=== PATIENT | female | born 1965 | race Caucasian/White ===

== ENCOUNTER 2020-09-23 15:08 | Emergency (ER) | payer BC, SELFPAY ==
--- NOTE | 2020-09-23 15:14 | ED.GENADULT ---
HPI - General Adult General Chief complaint: Skin/Abscess/Foreign Body Stated complaint: Boil Time Seen by Provider: 09/23/20 15:14 Source: patient Mode of arrival: ambulatory Limitations: no limitations History of Present Illness HPI narrative: 55-year-old female patient presents to the [facility] with complaints of a wound to the upper vaginal area x1 week. Patient states that she tried to open it herself yesterday and states that all she got out with some blood. Patient states she feels like it is become more red since trying to open it yesterday. Patient is diabetic but noncompliant. Denies fevers, body aches or chills. Related Data Home Medications Medication Instructions Recorded Confirmed albuterol sulfate 2 inh INHALATION DIRECTED 09/23/20 09/23/20 allopurinol 300 mg PO DIRECTED 09/23/20 09/23/20 atorvastatin 10 mg PO DAILY 09/23/20 09/23/20 baclofen 10 mg PO DAILY 09/23/20 09/23/20 citalopram 40 mg PO DAILY 09/23/20 09/23/20 dapagliflozin-metformin [Xigduo XR] 1 tablet PO DIRECTED 09/23/20 09/23/20 Allergies Allergy/AdvReac Type Severity Reaction Status Date / Time morphine Allergy Unknown HALLUCINATI Verified 03/27/15 07:08 ONS Sulfa (Sulfonamide Allergy Unknown Verified 08/12/14 10:44 Antibiotics) Review of Systems Review of Systems: Narrative: CONSTITUTIONAL: Denies fever, chills, or sweats. EYES: Denies visual changes, redness, or discharge. ENT: Denies rhinorrhea, congestion, sore throat, or otalgia. CARDIOVASCULAR: Denies chest pain, palpitations, or edema. RESPIRATORY: Denies cough or dyspnea. GASTROINTESTINAL: Denies abdominal pain, nausea, vomiting, or diarrhea. GENITOURINARY: Denies dysuria or hematuria. SKIN: Denies rash or itching. Positive wound to upper vaginal area x1 week MUSCULOSKELETAL: Denies back pain, joint pain, or myalgia. NEUROLOGIC: Denies headache, numbness, or weakness. PSYCHIATRIC: Denies anxiety or depression. [facility] Past Medical History Medical History (Updated 09/23/20 @ 16:03 by KAYLA Hamilton) Anxiety Bronchitis Depression Diverticulosis Heart murmur Hypertension Kidney stones 1992 cystoscopy with stent, right ESWL 2008 Type 2 diabetes mellitus Urinary tract infection Surgical History Surgical History (Updated 09/23/20 @ 15:16 by KAYLA Hamilton) H/O tubal ligation 2002 History of X3 History of carpal tunnel release Left History of hysterectomy Hx of cholecystectomy Family History Family History Mother Family history of thyroid disease Family history of diabetes mellitus in first degree relative Family history of type 2 diabetes mellitus Father Family history of heart disease in male family member before age 55 Cerebrovascular accident Grandparent Family history of type 2 diabetes mellitus Diabetes mellitus Family history of malignant neoplasm Sibling Family history of type 2 diabetes mellitus Other Family history of allergic disorder Family history of cardiovascular disease Hypertension Social History Social History Smoking status: Heavy tobacco smoker Second hand tobacco smoke exposure: Yes Alcohol intake: current Comments At the time of my signature I agree with nursing past medical history, surgical, social, and family history. There is no relevant family history pertinent to the presenting complaint. Exam Narrative: Exam Narrative: GENERAL: Well-appearing, well-nourished, and in no acute distress. HEAD: Normocephalic, atraumatic. EYES: PERRLA and EOMI. ENT: Nares clear, no rhinorrhea or epistaxis. Mucous membranes moist. NECK: Supple. No lymphadenopathy CHEST: Clear to auscultation. No respiratory distress. HEART: Regular rate and rhythm. No murmur heard. Normal peripheral pulses. ABDOMEN: Soft, nontender, nondistended, normal active bowel sounds. EXTREMITIES: Nor
[2020-09-23 15:25] VITALS: BP 148/89; PULSE 81; RESP 18; TEMP 36.2; O2SAT 100
== END 2020-09-23 16:08 | disposition home or self-care (01) ==
PROVIDERS: Emergency Provider Nurse Practitioner Family; PCP Nurse Practitioner Family
DX: N76.4 Abscess of vulva (principal); F17.200 Nicotine dependence, unspecified, uncomplicated; F41.9 Anxiety disorder, unspecified; F32.9 Major depressive disorder, single episode, unspecified; R01.1 Cardiac murmur, unspecified; I10 Essential (primary) hypertension; E11.9 Type 2 diabetes mellitus without complications
CPT/HCPCS: 56405; 87070; 87075; 87147; 87186; 87205; 99213; G0463

== ENCOUNTER 2022-01-06 03:09 | Inpatient (IN) | payer BC, SELFPAY ==
[2022-01-06] VITALS (7 sets, daily range): BP systolic 113–153; BP diastolic 59–82; PULSE 67–92; RESP 16–18; TEMP 36.1–36.8; O2SAT 94–100; BMI 38.2
--- NOTE | ~2022-01-06 | CT_ITS ---
EXAMINATION: CT abdomen pelvis w con INDICATION: Flank pain TECHNIQUE: Computed tomographic images of the abdomen and pelvis were obtained after the administrati on of 100 cc of Omnipaque 350 intravenous contrast. The dose-length product (DLP) was 1240.91 mGy-cm. Automated exposure control and iterative reconstruction technique were employed. COMPARISON: 04/13/2009 FINDINGS: Minimal dependent atelectasis is present in the lung bases. The heart size is normal. The g allbladder is surgically absent. There is mild enlargement of the common bile duct and central intrah epatic ducts which is likely due to post cholecystectomy state. The liver is diffusely low in attenua tion when compared with the spleen, consistent with hepatic steatosis. The spleen, pancreas, and adre nal glands are normal. There there are two nonobstructing 6 mm stones of the right kidney. There are areas of cortical scarring in the right kidney. No pathologically enlarged abdominal or pelvic lymph nodes are identified. There is severe lumbar spondylosis. IMPRESSION: 1. No CT correlate for the patient's symptoms. 2. Nonobstructing right nephrolithiasis. Reviewed, dictated and finalized at location A.
[2022-01-06 03:37] LABS: Basophils Absolute Auto 0.1 K/mm3 (0.0-0.1); Basophils Percent Auto 0.6 % (0.2-1.2); Eosinophils Absolute Auto 0.1 K/mm3 (0-0.3); Eosinophils Percent Auto 1.3 % (0-4.4); Hematocrit 51.7 % (37.0-47.0); Hemoglobin 17.8 g/dL (12.0-15.0); Immature Granulocyte Absolute 0.07 K/mm3 (0.00-0.031); Immature Granulocyte Percent A 0.7 % (0-0.5); Lymphocytes Absolute Auto 3.34 K/mm3 (0.9-3.2); Lymphocytes Percent Auto 33.9 % (18.3-44.2); Mean Corpuscular HGB Conc 34.4 g/dl (32-36); Mean Corpuscular Hemoglobin 32.6 pg (26-34); Mean Corpuscular Volume 94.7 fl (80-100); Mean Platelet Volume 9.1 fl (7.4-10.4); Monocytes Absolute Auto 0.7 K/mm3 (0.1-0.6); Monocytes Percent Auto 6.8 % (2.6-8.5); Neutrophils Absolute Auto 5.6 K/mm3 (1.3-6.7); Neutrophils Percent Auto 56.7 % (45.5-73.1); Platelet Count Result 273 k/mm3 (150-375); Red Blood Count 5.46 M/mm3 (4.2-5.4); Red Cell Distribution Width 13.6 % (11.5-14.5); White Blood Count 9.9 K/mm3 (4.5-10.0)
[2022-01-06 03:38] LABS: Appearance Urine Clear (Clear); Bilirubin Urine Negative (Negative); Blood Urine Trace-lysed (Negative); Color Urine Yellow (Yellow); Glucose Urine UA 3+ mg/dL (Negative); Ketones Urine Negative (Negative); Leukocyte Esterase Ur Trace LEU/UL (Negative); Nitrate Urine Negative (Negative); Protein Urine Negative (Negative); Specific Grav Ur 1.015 (1.001-1.035); Urobilinogen Urine 0.2 mg/dL (<2.0)
[2022-01-06 03:46] LABS: Bacteria Urine Trace /hpf; Mucus Urine Rare /lpf; Squamous Epithelial Cell Urine Occasional /hpf (Few); WBC Urine 51-75 /hpf
[2022-01-06 03:49] LABS: Add Urine Microscopic? YES
[2022-01-06 03:52] LABS: Alanine Aminotransferase 26 U/L (6-35); Albumin Level 4.9 g/dL (3.5-5.1); Alkaline Phosphatase 142 U/L (38-126); Anion Gap 12 mmol/L (8-16); Aspartate Amino Transferase 24 U/L (14-36); Bilirubin,Total 0.5 mg/dL (0.2-1.3); Blood Urea Nitrogen 16 mg/dL (7-17); Calcium 10.2 mg/dL (8.4-10.2); Carbon Dioxide 30 mmol/L (22-30); Chloride 92 mmol/L (98-107); Estimated Glomerular Filt Rate 58; Glucose 235 mg/dL (65-110); Lipase 817 U/L (23-300); Sodium 134 mmol/L (137-145)
--- NOTE | 2022-01-06 04:26 | ED.ABDPAIN ---
HPI - Abdominal Pain General Chief Complaint: Abdominal Pain Stated Complaint: abd pain Time Seen by Provider: 01/06/22 03:13 History of Present Illness HPI narrative: 56-year-old female presents emergency room second abdominal pain. She points to the midportion of her abdomen where the pain is located. Is been going on for approximately 4 to 5 days got progressively worse. She had a decrease in appetite over the last couple days. She denies any chills or fevers. No nausea vomiting. She does have prior history surgically of her gallbladder taken out as well as a hysterectomy. She denies any prior history of pancreatitis. Had any alcoholic drink in about 6 years. Related Data Home Medications Medication Instructions Recorded Confirmed albuterol sulfate 90 mcg/actuation 2 inh inhalation DIRECTED 09/23/20 09/23/20 aerosol inhaler allopurinol 300 mg tablet 300 mg PO DIRECTED 09/23/20 09/23/20 atorvastatin 10 mg tablet 10 mg PO DAILY 09/23/20 09/23/20 baclofen 10 mg tablet 10 mg PO DAILY 09/23/20 09/23/20 citalopram 40 mg tablet 40 mg PO DAILY 09/23/20 09/23/20 dapagliflozin 5 mg-metformin ER 1 tablet PO DIRECTED 09/23/20 09/23/20 1,000 mg tablet,extended release 24hr (Xigduo XR) Allergies Allergy/AdvReac Type Severity Reaction Status Date / Time morphine Allergy Unknown HALLUCINATI Verified 03/27/15 07:08 ONS Sulfa (Sulfonamide Allergy Unknown Verified 08/12/14 10:44 Antibiotics) Review of Systems Review of Systems: CONSTITUTIONAL: Denies fever, chills, or sweats. EYES: Denies visual changes, redness, or discharge. ENT: Denies rhinorrhea, congestion, sore throat, or otalgia. CARDIOVASCULAR: Denies chest pain, palpitations, or edema. RESPIRATORY: Denies cough or dyspnea. GASTROINTESTINAL: Abdominal pain with some nausea. GENITOURINARY: Denies dysuria or hematuria. SKIN: Denies rash or itching. MUSCULOSKELETAL: Denies back pain, joint pain, or myalgia. NEUROLOGIC: Denies headache, numbness, or weakness. PSYCHIATRIC: Denies anxiety or depression. [facility] Past Medical History Medical History Anxiety Bronchitis Depression Diverticulosis Heart murmur Hypertension Kidney stones 1992 cystoscopy with stent, right ESWL 2007 Type 2 diabetes mellitus Urinary tract infection Surgical History Surgical History H/O tubal ligation 2002 History of X3 History of carpal tunnel release Left History of hysterectomy Hx of cholecystectomy Family History Family History Mother Family history of thyroid disease Family history of diabetes mellitus in first degree relative Family history of type 2 diabetes mellitus Father Family history of heart disease in male family member before age 55 Cerebrovascular accident Grandparent Family history of type 2 diabetes mellitus Diabetes mellitus Family history of malignant neoplasm Sibling Family history of type 2 diabetes mellitus Other Family history of allergic disorder Family history of cardiovascular disease Hypertension Social History Social History Smoking status: Heavy tobacco smoker Second hand tobacco smoke exposure: Yes Alcohol intake: current Exam Narrative: APPEARANCE: Well appearing, no pain or distress, well-nourished. Patient is obese Head Normocephalic and atraumatic. EYES: PERRLA/EOMI, conjunctivae clear. NOSE: Normal with no drainage EARS:TMS clear with Madird, with good light reflex. THROAT: Pharynx clear, no exudate. NECK: Supple. No adenopathy, no masses. RESPIRATORY: Airway patent, respirations nonlabored. Clear to auscultation bilaterally, no rales, rhonchi, wheezing. CARDIOVASCULAR: Regular rate and rhythm without murmurs, rubs, or gallops. ABDOMINAL: Soft with tenderness to palp
[2022-01-06] MEDS: fentaNYL CITRATE INJ (*CRX) 100 MCG/2 ML VIAL 50 MCG IV PUSH (05:16)
[2022-01-06] MEDS: ONDANSETRON INJ 4 MG/2 ML VIAL IV PUSH (05:16)
--- NOTE | 2022-01-06 06:45 | ADMGEN ---
This patient, Veronica Mcdonough, was admitted to [facility] Surg Room 320-01. Patient/family oriented to hospital policies and general routines including ID bracelet, bed and alarms, visiting hours, pain management, procedures, bathroom and other care routines, personal items, smoking policy, room service/diet, and visiting hours. Information on how to activate the Rapid Response Team has been discussed. Patient/Family are encouraged to report perceived risks to care and to ask questions if they do not understand what they are told or what they should do.
[2022-01-06] MEDS: SODIUM CHLORIDE 0.9% IV 1,000 ML 200 ML IV CONT (06:50)
[2022-01-06 07:43] LABS: Glucose Point of Care 256 mg/dl (65-105)
--- NOTE | 2022-01-06 08:59 | PC.NURSE ---
informed Colleen pt provider Bs [id number], currently NPO for pancreatis.
--- NOTE | 2022-01-06 09:39 | PM.IMHP ---
H&P: HPI History of Present Illness Date/Time: 01/06/22 09:39 Chief Complaint: abdominal pain Narrative: Date of service: 01/06/2022 Veronica Mcdonough is a 56-year-old female with a history of type 2 diabetes mellitus, hypertension, kidney stones, anxiety, depression, and cholecystectomy in 2018 who presented to the emergency department on 01/06/2022 with complaints of abdominal pain ongoing for 5 days. She states her pain started in her belly button and spread towards her right side. She described it as a constant aching sensation that worsened any time she ate something. Pain slowly worsened over the past couple of days. She was still able to tolerate oral intake until last night when she ate a pork steak and developed severe pain that she rated as 7.5/10. She had an episode of emesis at home and then ultimately decided to seek emergency care. She reports 3-4 additional episodes of emesis in the ED, stating she vomited up her dinner. She denies alcohol use. Denies any previous history of pancreatitis. On presentation to the ED , her vital signs were stable, she was afebrile, H&H slightly elevated likely due to hemoconcentration, glucose 235, lipase 817, and initial CT report showed hepatic steatosis and nonobstructing right kidney stones. at the time of my initial evaluation, she is feeling improved after receiving pain medications. She currently rates her pain as 3/10 and denies nausea, vomiting, fever, or chills. She is being admitted to the hospitalist service. Supervising physician for this history and physical is Dr. Emmy Arevalo. Review of Systems Review of Systems: All systems reviewed with pertinent positives and negatives as per HPI. Patient denies shortness of breath, cough, chest pain, palpitations, dizziness, lightheadedness, weakness. States she has been drinking plenty of fluids at home. She had diarrhea 2-3 days ago but states this has resolved. She did have a loose stool yesterday. Denies melena, hematochezia, hematemesis. Denies dysuria, hematuria, urgency, frequency. No lower extremity swelling. No headaches. Reports recent cold symptoms about 1.5 weeks ago. No recent sick contacts. [facility] Past Medical History Medical History (Updated 01/06/22 @ 13:33 by Colleen Johnson PA-C) Anxiety Bronchitis Depression Diverticulosis Heart murmur Hypertension Kidney stones 1992 cystoscopy with stent, right ESWL 2008 Tobacco abuse Type 2 diabetes mellitus Surgical History Surgical History H/O tubal ligation 2002 History of X3 History of carpal tunnel release Left History of hysterectomy Hx of cholecystectomy Family History Family History Mother Family history of thyroid disease Family history of diabetes mellitus in first degree relative Family history of type 2 diabetes mellitus Father Family history of heart disease in male family member before age 55 Cerebrovascular accident Grandparent Family history of type 2 diabetes mellitus Diabetes mellitus Family history of malignant neoplasm Sibling Family history of type 2 diabetes mellitus Other Family history of allergic disorder Family history of cardiovascular disease Hypertension Social History Social History (Updated 01/06/22 @ 09:58 by Colleen Johnson PA-C) Social History: Lives at home with and 3 children PCP: Fadia Byrne NP POA: Chris () Full code Smoking packs per day: 1 Smoking cigarettes per day: 20.0 Years smoked: 40 Smoking pack-years: 40.00 Smoking status: Current every day smoker Tobacco type: cigarettes Alcohol intake: never Substance use type: does not use Spiritual care concerns: No Meds Home Medications and Allergies Home Medications Medication Instructions Recorded Confirmed Type albuterol sulfate 90 mcg/actuation 2
[2022-01-06] MEDS: ENOXAPARIN 40 MG/0.4 ML SYRINGE SUB-Q (10:41)
[2022-01-06 10:50] LABS: Hemoglobin A1C 8.7 % (<5.7)
[2022-01-06 11:23] LABS: Glucose Point of Care 257 mg/dl (65-105)
[2022-01-06] MEDS: SODIUM CHLORIDE 0.9% IV 1,000 ML 100 ML IV CONT ×2 (13:39→23:53)
[2022-01-06] MEDS: HYDROmorphone HCL INJ (*CRX) 1 MG/ML SYR 0.5 MG IV PUSH (13:47)
[2022-01-06] MEDS: NICOTINE (*PBKC) 21 MG PATCH 1 PATCH TRANSDERM (16:08)
[2022-01-06 16:28] LABS: Glucose Point of Care 180 mg/dl (65-105)
[2022-01-06 20:07] LABS: Glucose Point of Care 177 mg/dl (65-105)
[2022-01-07 06:00] VITALS: BP 124/69; PULSE 61; RESP 18; TEMP 36.6; O2SAT 96
[2022-01-07 06:28] LABS: Hematocrit 45.5 % (37.0-47.0); Hemoglobin 15.3 g/dL (12.0-15.0); Mean Corpuscular HGB Conc 33.6 g/dl (32-36); Mean Corpuscular Hemoglobin 32.1 pg (26-34); Mean Corpuscular Volume 95.4 fl (80-100); Mean Platelet Volume 8.9 fl (7.4-10.4); Platelet Count Result 220 k/mm3 (150-375); Red Blood Count 4.77 M/mm3 (4.2-5.4); Red Cell Distribution Width 13.2 % (11.5-14.5); White Blood Count 5.2 K/mm3 (4.5-10.0)
[2022-01-07 06:39] LABS: Alanine Aminotransferase 20 U/L (6-35); Albumin Level 3.9 g/dL (3.5-5.1); Alkaline Phosphatase 108 U/L (38-126); Anion Gap 6 mmol/L (8-16); Aspartate Amino Transferase 22 U/L (14-36); Bilirubin,Total 0.6 mg/dL (0.2-1.3); Blood Urea Nitrogen 11 mg/dL (7-17); Calcium 8.6 mg/dL (8.4-10.2); Carbon Dioxide 30 mmol/L (22-30); Chloride 101 mmol/L (98-107); Estimated CRCL calculation 114 ml/min; Estimated Glomerular Filt Rate > 60; Glucose 192 mg/dL (65-110); Lipase 455 U/L (23-300); Potassium 4.2 mmol/L (3.4-5.0); Sodium 137 mmol/L (137-145)
[2022-01-07 07:50] LABS: Glucose Point of Care 195 mg/dl (65-105)
[2022-01-07] MEDS: CITALOPRAM HYDROBROMIDE 20 MG TABLET 40 MG PO (08:18)
[2022-01-07] MEDS: ATORVASTATIN 10 MG TABLET PO (08:18)
[2022-01-07] MEDS: allopurinoL 300 MG TABLET PO (08:18)
[2022-01-07] MEDS: ENOXAPARIN 40 MG/0.4 ML SYRINGE SUB-Q (08:19)
[2022-01-07] MEDS: NICOTINE (*PBKC) 21 MG PATCH 1 PATCH TRANSDERM (08:19)
[2022-01-07 11:34] LABS: Glucose Point of Care 301 mg/dl (65-105)
[2022-01-07] MEDS: INSULIN ASPART (*BKC) 100 UNITS/ML SUB-Q (11:47)
[2022-01-07] MEDS: SODIUM CHLORIDE 0.9% IV 1,000 ML 100 ML IV CONT (11:49)
[2022-01-07 14:00] VITALS: BP 127/65; PULSE 58; RESP 16; TEMP 35.8; O2SAT 96
[2022-01-07 15:37] LABS: Glucose Point of Care 261 mg/dl (65-105)
--- NOTE | 2022-01-07 15:55 | PM.DS ---
DS: Admitting Diagnosis Discharge Date 01/07/2022 Admitting Diagnosis pancreatitis DS: Discharge Diagnosis Discharge Diagnosis (1) Acute pancreatitis: Code(s): K85.90 - Acute pancreatitis without necrosis or infection, unspecified Status: Acute Assessment and Plan: Patient presented with nausea, vomiting, abdominal pain. Lipase 800 on presentation, nearly 3x upper limit of normal CT of abdomen/pelvis reviewed, pancreas normal on imaging however clinical findings consistent with pancreatitis Symptomatic improvement following IV fluid rehydration and bowel rest Diet was slowly advanced and patient able to tolerate diet Patient denies alcohol use for >6 years, s/p cholecytstectomy, does not appear to be on any medications known to cause pancreatitis. Most likely idiopathic. Lipase improved to 450. Symptoms resolved Continue low-fat diet (2) Type 2 diabetes mellitus: Code(s): E11.9 - Type 2 diabetes mellitus without complications Status: Acute Assessment and Plan: A1c is 8.7. Blood sugar slightly elevated during admission managed during admission with Accu-Cheks, sliding scale insulin, hypoglycemic protocol resume home dapagliflozin-metformin instructed to monitor blood sugars at home qid with meals and at bedtime and follow-up with PCP for glucose monitoring (3) Hypertension: Code(s): I10 - Essential (primary) hypertension Status: Acute Assessment and Plan: blood pressure reviewed and was well controlled patient is not on any antihypertensives (4) Polycythemia: Code(s): D75.1 - Secondary polycythemia Status: Acute Assessment and Plan: Hemoglobin 17.8 and hematocrit 51.7 on presentation Initial labs felt to be secondary to hemoconcentration Improved with IV fluids. Hematocrit normalized and hemoglobin only mildly elevated at 15.3 Encouraged adequate p.o. fluid hydration Less likely due to smoking given improvement with fluids (5) Tobacco abuse: Code(s): Z72.0 - Tobacco use Status: Acute Assessment and Plan: Patient smokes 1 pack per day Nicotine patch provided during admission Patient was educated regarding smoking cessation for 3 minutes. DS: Summary Hospital Course Hospital Course: date of admission: 01/06/2022 date of discharge: 01/07/2022 Veronica Mcdonough is a 56-year-old female with a history of type 2 diabetes mellitus, hypertension, kidney stones, anxiety, depression, ? and cholecystectomy in 2018 who presented to the emergency department on 01/06/2022 with complaints of abdominal pain ongoing for 5 days. On presentation to the ED , her vital signs were stable, she was afebrile, H&H slightly elevated likely due to hemoconcentration, glucose 235, lipase 817,?and initial CT report showed hepatic steatosis and nonobstructing right kidney stones. she was admitted to the hospitalist service for further evaluation and management. Please see above for further details. She had symptomatic improvement following IV rehydration and bowel rest. Lipase improved. She was able to advance to a low-fat diet and tolerated this without difficulty. Given overall improvement of her symptoms, she requested discharge home and was determined to no longer require inpatient care. I discussed with the patient worrisome signs and symptoms for which to return and she was educated on her medications. She will maintain a low-fat diet and will follow-up with her primary care provider in 1-2 weeks. She was discharged in hemodynamically stable condition on 01/07/2022. Time spent discussing smoking cessation with patient: 3 to 10 minutes Status at Discharge Functional status at discharge: independent ambulation Overall status at discharge: patient is back to baseline Time Spent with Patient Time attestation: Total time spent providing and/or coordinating discharge services: 33 minutes Time spent: Greater than 30
== END 2022-01-07 16:00 | disposition home or self-care (01) | DRG 440 ==
LOC: ANHED 05:47 → ANH3MEDSUR 06:19
PROVIDERS: Admitting Provider Internal Medicine; Emergency Provider Emergency Medicine; PCP Nurse Practitioner Family; Visit Provider Physician Assistant
DX: K85.90 Acute pancreatitis without necrosis or infection, unspecified (principal); D75.1 Secondary polycythemia; I10 Essential (primary) hypertension; E11.9 Type 2 diabetes mellitus without complications; E66.9 Obesity, unspecified; R01.1 Cardiac murmur, unspecified; F41.9 Anxiety disorder, unspecified; F32.A Depression, unspecified; F17.210 Nicotine dependence, cigarettes, uncomplicated; Z87.442 Personal history of urinary calculi; Z90.49 Acquired absence of other specified parts of digestive tract
CPT/HCPCS: 36415; 74177; 80053; 81001; 82948; 83036; 83690; 85025; 85027; 87077; 87086; 87088; 87186; 96374; 96375; 99285; A9270; J0131; J1170; J1650; J1815; J2405; J3010; J7030; Q9967

== ENCOUNTER 2022-09-18 19:06 | Emergency (ER) | payer BC, SELFPAY ==
[2022-09-18 19:15] VITALS: BP 136/71; PULSE 90; RESP 16; TEMP 36.4; O2SAT 97
[2022-09-18 19:34] VITALS: BP 136/71; PULSE 90; RESP 16; TEMP 36.4; O2SAT 97
--- NOTE | 2022-09-18 19:41 | ED.URI ---
HPI - URI/Sore Throat General Chief Complaint: Upper Respiratory Infection Stated Complaint: Sinus/Head/Neck Pain Time Seen by Provider: 09/18/22 19:32 Source: patient and RN notes reviewed Mode of arrival: ambulatory Limitations: no limitations History of Present Illness HPI Narrative: Patient presents today complaining of swelling and tenderness to the right lower jaw, in front of the right ear. Symptoms began today. Patient has been started recently on some allergy medication and Flonase that she takes daily for allergy symptoms. She currently rates her pain 6/10. Denies any bad or broken teeth. She does report some right ear pain as well. Related Data Home Medications Medication Instructions Recorded Confirmed albuterol sulfate 90 mcg/actuation 2 inh inhalation PRN PRN SOB 09/23/20 01/06/22 aerosol inhaler allopurinol 300 mg tablet 300 mg PO DAILY 09/23/20 01/06/22 atorvastatin 10 mg tablet 10 mg PO DAILY 09/23/20 01/06/22 baclofen 10 mg tablet 10 mg PO DAILY PRN muscle spasm 09/23/20 01/06/22 citalopram 40 mg tablet 40 mg PO DAILY 09/23/20 01/06/22 dapagliflozin 5 mg-metformin ER 1 tablet PO BID 09/23/20 01/06/22 1,000 mg tablet,extended release 24hr (Xigduo XR) Allergies Allergy/AdvReac Type Severity Reaction Status Date / Time morphine Allergy Unknown HALLUCINATI Verified 09/18/22 19:08 ONS Sulfa (Sulfonamide Allergy Unknown Hives Verified 09/18/22 19:08 Antibiotics) Review of Systems Review of Systems: CONSTITUTIONAL: Denies body aches, fever, chills, or sweats. EYES: Denies visual changes, redness, or discharge. ENT: Denies rhinorrhea, congestion, sore throat. + right ear pain, bump to right jaw CARDIOVASCULAR: Denies chest pain, palpitations, or edema. RESPIRATORY: Denies cough or dyspnea. GASTROINTESTINAL: Denies abdominal pain, nausea, vomiting, or diarrhea. GENITOURINARY: Denies dysuria or hematuria. SKIN: Denies rash, itching, or wounds. MUSCULOSKELETAL: Denies back pain, joint pain, or myalgia. NEUROLOGIC: Denies headache, numbness, tingling, or weakness. PSYCH: Denies depression or anxiety. [facility] Past Medical History Medical History Anxiety Bronchitis Depression Diverticulosis Heart murmur Hypertension Kidney stones 1992 cystoscopy with stent, right ESWL 2008 Tobacco abuse Type 2 diabetes mellitus Surgical History Surgical History H/O tubal ligation 2002 History of X3 History of carpal tunnel release Left History of hysterectomy Hx of cholecystectomy Family History Family History Mother Family history of thyroid disease Family history of diabetes mellitus in first degree relative Family history of type 2 diabetes mellitus Father Family history of heart disease in male family member before age 55 Cerebrovascular accident Grandparent Family history of type 2 diabetes mellitus Diabetes mellitus Family history of malignant neoplasm Sibling Family history of type 2 diabetes mellitus Other Family history of allergic disorder Family history of cardiovascular disease Hypertension Social History Social History Social History: Lives at home with and 3 children PCP: Fadia Byrne NP POA: Chris () Full code Smoking packs per day: 1 Smoking cigarettes per day: 20.0 Years smoked: 40 Smoking pack-years: 40.00 Smoking status: Current every day smoker Tobacco type: cigarettes Alcohol intake: never Substance use type: does not use Spiritual care concerns: No Comments At time of signature, I have reviewed and agree with nursing past medical, surgical, social and family history unless otherwise noted. Please see nursing chart for further information. Th
== END 2022-09-18 19:49 | disposition home or self-care (01) ==
PROVIDERS: Emergency Provider Nurse Practitioner; PCP Nurse Practitioner Family
DX: I88.9 Nonspecific lymphadenitis, unspecified (principal); H65.01 Acute serous otitis media, right ear; F17.210 Nicotine dependence, cigarettes, uncomplicated; R01.1 Cardiac murmur, unspecified; I10 Essential (primary) hypertension; E11.9 Type 2 diabetes mellitus without complications
CPT/HCPCS: 99211; G0463

== ENCOUNTER 2023-01-28 10:03 | Outpatient (CLI) | payer BC, SELFPAY ==
--- NOTE | ~2023-01-28 | CT_ITS ---
EXAMINATION: CT lung screening DATE: 01/28/2023 10:43 INDICATION: Personal history of nicotine dependence, current smoker with 38 pack year history TECHNIQUE: Computed tomography (CT) of the chest was performed without intravenous contrast. The dose -length product (DLP) was 279.73 mGy-cm. Automated exposure control and iterative reconstruction tech [id number] were employed. COMPARISON: None FINDINGS: There is mild emphysema. The lungs are free of acute opacities. No pleural effusion or pneu mothorax. No suspicious pulmonary nodule is identified. No pathologically enlarged thoracic lymph nod es are identified. The heart size is normal. The gallbladder is surgically absent. There is mild thor acic spondylosis. IMPRESSION: 1. Lung-RADS category 1: Negative. Continue annual screening with noncontrast low-dose chest CT in 12 months. Reviewed, dictated and finalized at location L. IMPRESSION: 1. Lung-RADS category 1: Negative. Continue annual screening with noncontrast l ow-dose chest CT in 12 months.
== END 2023-01-28 10:04 | disposition home or self-care (01) ==
PROVIDERS: PCP Nurse Practitioner Family; Visit Provider Nurse Practitioner Family
DX: Z12.2 Encounter for screening for malignant neoplasm of respiratory organs (principal); F17.210 Nicotine dependence, cigarettes, uncomplicated
CPT/HCPCS: 71271

== ENCOUNTER 2023-06-10 11:47 | Emergency (ER) | payer BC, SELFPAY ==
--- NOTE | ~2023-06-10 | XR_ITS ---
XR chest 2V DATE: 06/10/2023 12:49 INDICATION: Cough TECHNIQUE: PA and lateral views COMPARISON: 01/28/2023 CT lung screening FINDINGS: Normal heart size. No hilar or mediastinal enlargement. No pulmonary infiltrate or consolid ation, pleural effusion or pulmonary vascular congestion or pneumothorax is detected. Included skeletal structures are unremarkable. IMPRESSION: No active cardiopulmonary disease Reviewed, dictated and finalized at location [facility]
[2023-06-10 12:02] VITALS: BP 119/65; PULSE 70; RESP 20; TEMP 35.7; O2SAT 100
[2023-06-10 12:10] VITALS: BP 119/65; PULSE 70; RESP 20; TEMP 35.7; O2SAT 100
--- NOTE | 2023-06-10 12:10 | ED.URI ---
HPI - URI/Sore Throat General Chief Complaint: Upper Respiratory Infection Stated Complaint: cough,sore throat,earache Time Seen by Provider: 06/10/23 12:11 Source: patient, RN notes reviewed and old records reviewed Mode of arrival: ambulatory Limitations: no limitations History of Present Illness HPI Narrative: 58-year-old female presents to the [facility] with complaints of cough, sore throat, earache. Has tried Delsym, Mucinex, Robitussin as well as DayQuil and NyQuil Patient is a smoker Patient has a history of diabetes, has not been wearing her diabetic monitor. States she needs to get filled at the pharmacy Onset (ago): week(s) (1) Treatments prior to arrival: cold medicine Related Data Home Medications Medication Instructions Recorded Confirmed albuterol sulfate 90 mcg/actuation 2 inh inhalation PRN PRN SOB 09/23/20 06/10/23 aerosol inhaler allopurinol 300 mg tablet 300 mg PO DAILY 09/23/20 06/10/23 atorvastatin 10 mg tablet 10 mg PO DAILY 09/23/20 06/10/23 baclofen 10 mg tablet 10 mg PO DAILY PRN muscle spasm 09/23/20 06/10/23 citalopram 40 mg tablet 40 mg PO DAILY 09/23/20 06/10/23 glipizide 10 mg tablet, extended 10 mg PO DAILY 06/10/23 06/10/23 release 24 hr lisinopril 5 mg tablet 5 mg PO DAILY 06/10/23 06/10/23 tramadol 50 mg tablet 50 mg PO Q6-8H PRN Pain 06/10/23 06/10/23 Allergies Allergy/AdvReac Type Severity Reaction Status Date / Time morphine Allergy Unknown HALLUCINATI Verified 09/18/22 19:08 ONS Sulfa (Sulfonamide Allergy Unknown Hives Verified 09/18/22 19:08 Antibiotics) Review of Systems Review of Systems: All systems reviewed & are unremarkable except as noted in HPI and below Constitutional: Constitutional: Reports no additional constitutional complaints Eyes: Eyes: Reports no additional eye complaints ENT: Reports as per HPI and Reports sore throat Cardiovascular: Cardiovascular: Reports no additional cardiovascular complaints, Denies chest pain and Denies dyspnea Respiratory: Respiratory: Reports as per HPI, Denies chest congestion, Reports cough and Denies dyspnea Gastrointestinal: Gastrointestinal: Reports no additional gastrointestinal complaints, Denies abdominal pain, Denies nausea and Denies vomiting Musculoskeletal: Musculoskeletal: Reports no additional musculoskeletal complaints Integumentary/Breasts: Skin/Breast: Reports system reviewed and no additional complaints, except as docu Neurologic: Reports system reviewed and no additional complaints, except as documented Psychiatric: Psychiatric: Reports no additional psychiatric complaints Allergic/Immunologic: Allergic/Immunologic: Reports no additional allergic/immunologic complaints PMFSH Past Medical History Medical History Anxiety Bronchitis Depression Diverticulosis Elevated liver enzymes Heart murmur High cholesterol Hypertension Kidney stones 1992 cystoscopy with stent, right ESWL 2008 Smoker TMJ arthralgia Tobacco abuse Type 2 diabetes mellitus Type 2 diabetes mellitus with complication, without long-term current use of insulin Type 2 diabetes mellitus without complications Surgical History Surgical History H/O tubal ligation 2002 History of X3 History of carpal tunnel release Left History of hysterectomy Hx of cholecystectomy Family History Family History Mother Family history of thyroid disease Family history of diabetes mellitus in first degree relative Family history of type 2 diabetes mellitus Father Family history of heart disease in male family member before age 55 Cerebrovascular accident Grandparent Family history of type 2 diabetes mellitus Diabetes mellitus Family history of malignant neoplasm Sibling Family history of type 2 diabetes mellitus Other Family history of allergic dis
== END 2023-06-10 13:10 | disposition home or self-care (01) ==
PROVIDERS: Emergency Provider Nurse Practitioner; PCP Nurse Practitioner Family
DX: J40 Bronchitis, not specified as acute or chronic (principal); F17.210 Nicotine dependence, cigarettes, uncomplicated; R01.1 Cardiac murmur, unspecified; E78.00 Pure hypercholesterolemia, unspecified; I10 Essential (primary) hypertension; E11.9 Type 2 diabetes mellitus without complications; Z79.84 Long term (current) use of oral hypoglycemic drugs
CPT/HCPCS: 71046; 99213; G0463

== ENCOUNTER 2023-10-24 18:02 | Emergency (ER) | payer BC, SELFPAY ==
--- NOTE | 2023-10-24 18:11 | ED.LOWEXIN ---
HPI - Extremity Injury (Lower) General Chief Complaint: Extremity Problem,Nontraumatic Stated Complaint: right knee injury/pain Time Seen by Provider: 10/24/23 18:12 Source: patient Mode of arrival: ambulatory Limitations: no limitations History of Present Illness HPI Narrative: Patient is a 58-year-old female who presents with right knee pain that started today. Denies any trauma or injury. Has not taken anything for pain. Denies any swelling, numbness, tingling or weakness to distal portion of the leg. Related Data Home Medications Medication Instructions Recorded Confirmed albuterol sulfate 90 mcg/actuation 2 inh inhalation PRN PRN SOB 09/23/20 10/24/23 aerosol inhaler allopurinol 300 mg tablet 300 mg PO DAILY 09/23/20 10/24/23 atorvastatin 10 mg tablet 10 mg PO DAILY 09/23/20 10/24/23 baclofen 10 mg tablet 10 mg PO DAILY PRN muscle spasm 09/23/20 10/24/23 citalopram 40 mg tablet 40 mg PO DAILY 09/23/20 10/24/23 glipizide 10 mg tablet, extended 10 mg PO DAILY 06/10/23 10/24/23 release 24 hr lisinopril 5 mg tablet 5 mg PO DAILY 06/10/23 10/24/23 tramadol 50 mg tablet 50 mg PO Q6-8H PRN Pain 06/10/23 10/24/23 Allergies Allergy/AdvReac Type Severity Reaction Status Date / Time Sulfa (Sulfonamide Allergy Intermediate Hives Verified 10/24/23 18:21 Antibiotics) morphine AdvReac Intermediate HALLUCINATI Verified 10/24/23 18:21 ONS Review of Systems Review of Systems: All systems reviewed & are unremarkable except as noted in HPI and below Constitutional: Constitutional: Denies body ache(s), Denies chills, Denies fatigue, Denies fever(s), Denies headache(s), Denies malaise and Denies weakness Eyes: Eyes: Denies blurry vision, Denies irritation and Denies loss of vision ENT: Denies otalgia, Denies headache(s), Denies nasal discharge, Denies sinus pain and Denies sore throat Cardiovascular: Cardiovascular: Denies chest pain, Denies irregular heart rhythm and Denies dyspnea Respiratory: Respiratory: Denies dyspnea Gastrointestinal: Gastrointestinal: Denies abdominal pain, Denies melena, Denies hematochezia, Denies diarrhea, Denies nausea and Denies vomiting Musculoskeletal: Musculoskeletal: Denies back pain, Denies myalgias and Reports arthralgias Integumentary/Breasts: Skin/Breast: Denies pruritus and Denies rash Neurologic: Denies headache(s), Denies loss of vision and Denies weakness Psychiatric: Psychiatric: Reports no additional psychiatric complaints Endocrine: Endocrine: Denies fatigue PMFSH Past Medical History Medical History Anxiety Bronchitis Depression Diverticulosis Elevated liver enzymes Heart murmur High cholesterol Hypertension Kidney stones 1992 cystoscopy with stent, right ESWL 2008 Smoker TMJ arthralgia Tobacco abuse Type 2 diabetes mellitus Type 2 diabetes mellitus with complication, without long-term current use of insulin Type 2 diabetes mellitus without complications Surgical History Surgical History H/O tubal ligation 2002 History of X3 History of carpal tunnel release Left History of hysterectomy Hx of cholecystectomy Family History Family History Mother Family history of thyroid disease Family history of diabetes mellitus in first degree relative Family history of type 2 diabetes mellitus Father Family history of heart disease in male family member before age 55 Cerebrovascular accident Grandparent Family history of type 2 diabetes mellitus Diabetes mellitus Family history of malignant neoplasm Sibling Family history of type 2 diabetes mellitus Other Family history of allergic disorder Family history of cardiovascular disease Hypertension Social History Social History Social History: Lives at home with
[2023-10-24 18:13] VITALS: BP 137/73; PULSE 89; RESP 16; TEMP 36.1; O2SAT 97
== END 2023-10-24 18:45 | disposition home or self-care (01) ==
PROVIDERS: Emergency Provider Nurse Practitioner Family; PCP Nurse Practitioner Family
DX: S83.91XA Sprain of unspecified site of right knee, initial encounter (principal); X58.XXXA Exposure to other specified factors, initial encounter; F41.9 Anxiety disorder, unspecified; F32.A Depression, unspecified; R01.1 Cardiac murmur, unspecified; E78.00 Pure hypercholesterolemia, unspecified; I10 Essential (primary) hypertension; E11.9 Type 2 diabetes mellitus without complications; Z79.84 Long term (current) use of oral hypoglycemic drugs
CPT/HCPCS: 99212; G0463